=== PATIENT | female | born 1945 | race Caucasian/White ===

== ENCOUNTER → 2019-06-23 14:41 | Outpatient (BNVA) | payer MEDICARE, SELFPAY | PROVIDERS: Visit Provider Anesthesiology | DX: M51.9 Unspecified thoracic, thoracolumbar and lumbosacral intervertebral disc disorder (principal); M25.562 Pain in left knee; Z79.891 Long term (current) use of opiate analgesic | CPT/HCPCS: 99214 ==

== ENCOUNTER 2019-06-30 12:36 | Emergency (ER) | payer MEDICARE, SELFPAY ==
[2019-06-30 12:40] VITALS: BP 177/87; PULSE 54; RESP 16; TEMP 36.3; O2SAT 98; BMI 29.2
--- NOTE | 2019-06-30 12:50 | ED_ITS ---
Entered by Cleopatra Cabrales, acting as scribe for Carmina Diego HPI - SOB/Dyspnea General: Chief Complaint: Shortness of Breath/Dyspnea Stated Complaint: difficulty breathing Time Seen by Provider: 06/30/19 12:41 Source: patient and EMS Mode of arrival: EMS Limitations: no limitations History of Present Illness: HPI Narrative: Belia is a 74-year-old female comes in complaining of cough and shortness of breath. She denies any chest pain. She denies any fever but she has been chilled. She denies any shortness of breath with exertion only a cough and occasional wheezing. He states he has had similar symptoms in the past and had to be given antibiotics. She denies any other complaints or concerns. MD elicited complaint: shortness of breath and cough Pertinent past history: COPD Onset (ago): day(s) (yesterday) Context: recent illness (just finished antibotics for sinus infection) Timing: constant and progressively worsening Severity: moderate Exacerbating factors: exertion, coughing and deep breaths Relieving factors: nothing Known history of: COPD Associated symptoms: Reports cough; Deny abdominal pain, chest pain, diaphoresis, dizziness, extremity pain, fever(s), nausea, orthopnea, palpitations, polydipsia, syncope or vomiting Treatment prior to arrival: oxygen Related Data: Home oxygen amount: none Review of Systems General: Reports: other (negative unless marked) Const: Denies: fever, chills, body aches, fatigue, malaise or diaphoresis Eyes: Denies: change in vision or blurry vision ENMT: Denies: throat pain, painful swallowing, hoarseness, ear pain, ear discharge, Change in hearing or nasal discharge Card: Denies: chest pain, palpitations, irregular heart rhythm, syncope, pre- syncope, shortness of breath on exertion or shortness of breath when lying down GI: Denies: abdominal pain, nausea, vomiting, vomiting blood, coffee grounds in vomit, diarrhea, constipation, cramping, blood in stool or black tarry stool : Denies: flank pain, painful urination, urinary frequency, urinary urgency, decreased urine ouput, urinary incontinence or blood in urine Musc: Denies: neck pain, back pain, extremity pain, extremity swelling, joint pain, joint swelling, joint warmth or joint stiffness Skin/Breast: Denies: rash, skin tenderness or yellow skin Neuro: Denies: headache, numbness in extremities, weakness in extremities, changes in sensation, lack of coordination, difficulty walking, dizziness, vertigo or confusion Endo: Denies: excessive thirst, tired all the time, cold intolerance, excessive sweating, flushing or hot flashes Charlie/Lymph: Denies: easy bruising, easy bleeding, petechiae or enlarged lymph nodes All/Imm: Denies: hives, throat swelling, tongue swelling, facial swelling or acute wheezing PFSH ED PFSH: Statuses (acute, chronic, etc) shown below reflect problem list status as previously entered and may not be historically accurate Medical History Acute pain of left knee (Chronic) Back pain with history of spinal surgery (Chronic) Chronic pulmonary edema (Chronic) 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) History of COPD (Chronic) History of gallbladder disease (Chronic) Osteopenia (Chronic) Surgical History Hx of excision of lamina of cervical vertebra for decompression of spinal cord (Acute) Hx of neck surgery (Acute) Hx of thyroidectomy (Acute) Family History Father Throat cancer Mother , At age 80 Heart disease Other Diabetes Hypertension Thyroid disorder Denies family history of Anesthesia complication Bleeding disorder Social History Smoking and tobacco status: never smoked Second hand smoke exposure: No Alcohol intake: never Lives independently: Yes Household members: spouse Marital status: Current occupational status: retired History of recent travel: No Physical Exam Const: COMMON NORMALS: no apparent distress, oriented x3, no limitations, healthy appearing and well nourished EXAM LIMITATIONS: no altered mental status GENERAL APPEARANCE: cooperative, well kempt and well developed ORIENTATION/CONSCIOUSNESS: Yes awake HENMT: COMMON NORMALS: normocephalic, head/scalp atraumatic, hearing grossly normal bilaterally, external ears normal, EAC's normal, external nose normal and moist oral mucous membranes HEAD & SCALP: normal to inspection, normocephalic and atraumatic FACE & SINUS: normal facial exam and face symmetric NOSE: external nose normal and nares normal EXTERNAL EAR: Yes external ears normal EXTERNAL AUDITORY CANAL: EAC's normal MOUTH: oral and palatal mucosa normal and tongue normal Eye: COMMON NORMALS: PERRL, EOMs intact bilaterally, conjunctivae normal and no scleral icterus GENERAL EYE: normal appearance of both eyes and normal light reflex CONJUNCTIVA: Yes conjunctivae normal SCLERA: sclerae normal CORNEA: Yes corneas normal PUPIL: Yes PERRL DIRECT OPHTHALMOSCOPY: Yes normal light reflex Neck/C-Spine: COMMON NORMALS: full ROM, no lymphadenopathy, supple, no meningeal signs and no JVD GENERAL: Yes normal visual inspection and Yes trachea midline CERVICAL SPINE: Yes cervical ROM normal Chest: COMMONS NORMALS: inspection of chest normal and palpation of chest normal Cardio: COMMON NORMALS: no JVD, regular rate, regular rhythm, S1 normal heart sound, S2 normal heart sound, no gallops, no clicks, no murmurs and no rub JUGULAR VENOUS DISTENTION: no JVD RATE: regular rate RHYTHM: regular rhythm HEART SOUNDS: S1 normal and S2 normal GI: COMMON NORMALS: soft to palpation, non-tender, no hepatosplenomegaly and no masses INSPECTION: Yes normal to inspection PALPATION: Yes soft and Yes no hepatosplenomegaly : COMMON NORMALS: Yes no CVA tenderness BLADDER/KIDNEY EXAM: Yes no CVA tenderness Back/Pelvis: COMMON NORMALS: no CVA tenderness, thoracic and lumbar spine normal to inspection, no thoracic nor lumbar tenderness and thoraco-lumbar ROM normal Extremity: COMMON NORMALS: normal to inspection, full ROM, normal capillary refill, no joint enlargement, no clubbing, cyanosis or edema and no calf tenderness Neuro: COMMON NORMALS: oriented x3, CN's II-XII intact bilaterally, moves all extremities, no focal motor deficits and no sensory deficits noted MENINGEAL SIGNS: Yes no meningeal signs Psych: COMMON NORMALS: mental status grossly normal, thought process normal, cooperative, affect normal, speech normal and activity/motor behavior normal APPEARANCE: Yes well kempt SPEECH: Yes normal speech THOUGHT PROCESS: normal thought process Skin: COMMON NORMALS: no rashes or lesions noted, skin turgor normal, no jaundice, no petechiae and no mottling GENERAL SKIN EXAM: no rashes or lesions noted and turgor normal Course Vital Signs: Vital signs: Vital Signs Temperature 97.4 F L 06/30/19 12:40 Pulse Rate 66 06/30/19 13:30 Respiratory Rate 16 02/04/20 13:10 Blood Pressure 177/87 06/30/19 12:40 Pulse Oximetry 92 06/30/19 13:10 MDM - SOB/Dyspnea MDM Narrative: Medical decision making narrative: Ms. Machado is a 74-year-old female who comes in complaining of dyspnea with productive cough for the past 1 to 2 days. She uses oxygen as needed at home. She is had some sharp pleuritic left-sided chest pain. Her cardiac enzymes do not rule her and her EKGs are unremarkable. Her chest pain sounds pleuritic in nature. The patient's CT shows no sign of pneumonia and no pulmonary embolism. The patient is refusing to stay for any further evaluation and care and is adamant/demanding to be di scharged. I will place her on steroids, albuterol at home as she has a nebulizer and antibiotics. This is the course of care she wants to proceed with. Further care will be dictated by her doctor as I have instructed her to follow-up as soon as possible she agrees to return should her symptoms change or worsen. Lab Data: Attestation: I reviewed the patient's lab results. Labs: Lab Results 06/30/19 06/30/19 06/30/19 Range/Units 13:17 13:20 13:45 WBC 7.7 (4.0-10.0) 10^3/ uL RBC 4.40 (4.1-5.3) 10^6/u L Hgb 12.2 (11.5-15.3) g/dL Hct 37.2 (37.0-47.0) % MCV 84.5 (81-99) fL MCH 27.7 L (28.0-34.0) pg MCHC 32.8 (30.0-36.0) g/dL RDW 12.7 (12.1-15.1) % Plt Count 246 (130-400) 10^3/c mm MPV 11.4 H (7.4-10.4) fL Neut % (Auto) 57.2 % Lymph % (Auto) 32.9 % [place] % (Auto) 8.0 % Eos % (Auto) 1.2 % Baso % (Auto) 0.4 % Neut # (Auto) 4.4 (1.8-7.7) 10^3/u L Lymph # (Auto) 2.5 (0.8-4.8) 10^3/u L [place] # (Auto) 0.6 (0.2-0.9) 10^3/u L Eos # (Auto) 0.1 (0.0-0.8) 10^3/u L Baso # (Auto) 0.0 (0.0-0.1) 10^3/u L Nucleated RBC % (a uto) 0 % Nucleated RBCs # 0.0 /100WBC PT (10.5-13.3) SECO NDS INR (0.8-1.2) D-Dimer (0-0.59) ug/mIFE U Specimen Type Arterial Sample Site Radial, left ABG pH 7.51 H (7.35-7.45) ABG pCO2 36.0 (35-45) mmHg ABG pO2 92.0 (80.0-100.0) mmH g ABG HCO3 28.7 H (22-26) mmol/L ABG Base Excess 5.6 H (-2.0-2.0) mmol/ L Parag Test Pos Hematocrit 40.4 (37-47) % O2 Delivery Device Nc FiO2 28.0 % Mirror Inspector ID cak Sodium (136-145) mmol/L Potassium (3.5-5.1) mmol/L Chloride (98-107) mmol/L Carbon Dioxide (22-29) mmol/L Anion Gap (5-19) BUN (8-23) mg/dL Creatinine (0.5-0.9) mg/dL Glucose (74-106) mg/dL Lactic Acid (0.5-2.2) mmol/L Calcium (8.5-10.5) mg/dL Total Bilirubin (0.15-1.2) mg/dL AST (0-32) U/L ALT (0-33) U/L Alkaline Phosphata se (35-105) IU/L Troponin T Baselin e (0-10) ng/mL Troponin T 120 Min [place] (0-10) ng/mL Delta Troponin T (0-10) ABS# NT-Pro-B Natriuret Pep (0-450) pg/mL Total Protein (6.6-8.7) g/dL Albumin (3.5-5.2) g/dL Globulin (1.3-4.6) g/dL Urine Color Yellow (Yellow) Urine Appearance Clear (CLEAR) Urine pH 8 H (5-7) Ur Specific Gravit y 1.005 (1.005-1.030) Urine Protein Neg (Negative) Urine Glucose (UA) Norm (Normal) Urine Ketones Negative (Negative) Urine Occult Blood Neg (Negative) Urine Nitrate Negative (Negative) Urine Bilirubin Neg (NEGATIVE) Prot Sulfosalicyli c Acd Negative Urine Urobilinogen Norm (Negative) mg/dL Ur Leukocyte Keely ase Negative (Negative) Urine RBC None (0-2) /hpf Urine WBC None (0-5) /hpf Ur Squamous Epith Cells None (0-5) Urine Bacteria None (NONE) Influenza Type A A g (Negative) POC Influenza B Ag (Negative) 06/30/19 06/30/19 06/30/19 Range/Units 13:45 13:45 13:45 WBC (4.0-10.0) 10^3/ uL RBC (4.1-5.3) 10^6/u L Hgb (11.5-15.3) g/dL Hct (37.0-47.0) % MCV (81-99) fL MCH (28.0-34.0) pg MCHC (30.0-36.0) g/dL RDW (12.1-15.1) % Plt Count (130-400) 10^3/c mm MPV (7.4-10.4) fL Neut % (Auto) % Lymph % (Auto) % [place] % (Auto) % Eos % (Auto) % Baso % (Auto) % Neut # (Auto) (1.8-7.7) 10^3/u L Lymph # (Auto) (0.8-4.8) 10^3/u L [place] # (Auto) (0.2-0.9) 10^3/u L Eos # (Auto) (0.0-0.8) 10^3/u L Baso # (Auto) (0.0-0.1) 10^3/u L Nucleated RBC % (a uto) % Nucleated RBCs # /100WBC PT 12.70 (10.5-13.3) SECO NDS INR 0.95 (0.8-1.2) D-Dimer (0-0.59) ug/mIFE U Specimen Type Sample Site ABG pH (7.35-7.45) ABG pCO2 (35-45) mmHg ABG pO2 (80.0-100.0) mmH g ABG HCO3 (22-26) mmol/L ABG Base Excess (-2.0-2.0) mmol/ L Parag Test Hematocrit (37-47) % O2 Delivery Device FiO2 % Mirror Inspector ID Sodium 134 L (136-145) mmol/L Potassium 3.4 L (3.5-5.1) mmol/L Chloride 94 L (98-107) mmol/L Carbon Dioxide 29 (22-29) mmol/L Anion Gap 14.4 (5-19) BUN 13 (8-23) mg/dL Creatinine 0.6 (0.5-0.9) mg/dL Glucose 106 (74-106) mg/dL Lactic Acid 1.9 (0.5-2.2) mmol/L Calcium 9.6 (8.5-10.5) mg/dL Total Bilirubin 0.2 (0.15-1.2) mg/dL AST 16 (0-32) U/L ALT 8 (0-33) U/L Alkaline Phosphata se 103 (35-105) IU/L Troponin T Baselin e (0-10) ng/mL Troponin T 120 Min [place] (0-10) ng/mL Delta Troponin T (0-10) ABS# NT-Pro-B Natriuret Pep 298 (0-450) pg/mL Total Protein 6.8 (6.6-8.7) g/dL Albumin 4.3 (3.5-5.2) g/dL Globulin 2.5 (1.3-4.6) g/dL Urine Color (Yellow) Urine Appearance (CLEAR) Urine pH (5-7) Ur Specific Gravit y (1.005-1.030) Urine Protein (Negative) Urine Glucose (UA) (Normal) Urine Ketones (Negative) Urine Occult Blood (Negative) Urine Nitrate (Negative) Urine Bilirubin (NEGATIVE) Prot Sulfosalicyli c Acd Urine Urobilinogen (Negative) mg/dL Ur Leukocyte Keely ase (Negative) Urine RBC (0-2) /hpf Urine WBC (0-5) /hpf Ur Squamous Epith Cells (0-5) Urine Bacteria (NONE) Influenza Type A A g (Negative) POC Influenza B Ag (Negative) 06/30/19 06/30/19 06/30/19 Range/Units 13:45 13:45 15:59 WBC (4.0-10.0) 10^3/ uL RBC (4.1-5.3) 10^6/u L Hgb (11.5-15.3) g/dL Hct (37.0-47.0) % MCV (81-99) fL MCH (28.0-34.0) pg MCHC (30.0-36.0) g/dL RDW (12.1-15.1) % Plt Count (130-400) 10^3/c mm MPV (7.4-10.4) fL Neut % (Auto) % Lymph % (Auto) % [place] % (Auto) % Eos % (Auto) % Baso % (Auto) % Neut # (Auto) (1.8-7.7) 10^3/u L Lymph # (Auto) (0.8-4.8) 10^3/u L [place] # (Auto) (0.2-0.9) 10^3/u L Eos # (Auto) (0.0-0.8) 10^3/u L Baso # (Auto) (0.0-0.1) 10^3/u L Nucleated RBC % (a uto) % Nucleated RBCs # /100WBC PT (10.5-13.3) SECO NDS INR (0.8-1.2) D-Dimer 0.84 H (0-0.59) ug/mIFE U Specimen Type Sample Site ABG pH (7.35-7.45) ABG pCO2 (35-45) mmHg ABG pO2 (80.0-100.0) mmH g ABG HCO3 (22-26) mmol/L ABG Base Excess (-2.0-2.0) mmol/ L Parag Test Hematocrit (37-47) % O2 Delivery Device FiO2 % Mirror Inspector ID Sodium (136-145) mmol/L Potassium (3.5-5.1) mmol/L Chloride (98-107) mmol/L Carbon Dioxide (22-29) mmol/L Anion Gap (5-19) BUN (8-23) mg/dL Creatinine (0.5-0.9) mg/dL Glucose (74-106) mg/dL Lactic Acid (0.5-2.2) mmol/L Calcium (8.5-10.5) mg/dL Total Bilirubin (0.15-1.2) mg/dL AST (0-32) U/L ALT (0-33) U/L Alkaline Phosphata se (35-105) IU/L Troponin T Baselin e 15 H (0-10) ng/mL Troponin T 120 Min [place] (0-10) ng/mL Delta Troponin T (0-10) ABS# NT-Pro-B Natriuret Pep (0-450) pg/mL Total Protein (6.6-8.7) g/dL Albumin (3.5-5.2) g/dL Globulin (1.3-4.6) g/dL Urine Color (Yellow) Urine Appearance (CLEAR) Urine pH (5-7) Ur Specific Gravit y (1.005-1.030) Urine Protein (Negative) Urine Glucose (UA) (Normal) Urine Ketones (Negative) Urine Occult Blood (Negative) Urine Nitrate (Negative) Urine Bilirubin (NEGATIVE) Prot Sulfosalicyli c Acd Urine Urobilinogen (Negative) mg/dL Ur Leukocyte Keely ase (Negative) Urine RBC (0-2) /hpf Urine WBC (0-5) /hpf Ur Squamous Epith Cells (0-5) Urine Bacteria (NONE) Influenza Type A A g Negative (Negative) POC Influenza B Ag Negative (Negative) 06/30/19 Range/Units 16:08 WBC (4.0-10.0) 10^3/ uL RBC (4.1-5.3) 10^6/u L Hgb (11.5-15.3) g/dL Hct (37.0-47.0) % MCV (81-99) fL MCH (28.0-34.0) pg MCHC (30.0-36.0) g/dL RDW (12.1-15.1) % Plt Count (130-400) 10^3/c mm MPV (7.4-10.4) fL Neut % (Auto) % Lymph % (Auto) % [place] % (Auto) % Eos % (Auto) % Baso % (Auto) % Neut # (Auto) (1.8-7.7) 10^3/u L Lymph # (Auto) (0.8-4.8) 10^3/u L [place] # (Auto) (0.2-0.9) 10^3/u L Eos # (Auto) (0.0-0.8) 10^3/u L Baso # (Auto) (0.0-0.1) 10^3/u L Nucleated RBC % (a uto) % Nucleated RBCs # /100WBC PT (10.5-13.3) SECO NDS INR (0.8-1.2) D-Dimer (0-0.59) ug/mIFE U Specimen Type Sample Site ABG pH (7.35-7.45) ABG pCO2 (35-45) mmHg ABG pO2 (80.0-100.0) mmH g ABG HCO3 (22-26) mmol/L ABG Base Excess (-2.0-2.0) mmol/ L Parag Test Hematocrit (37-47) % O2 Delivery Device FiO2 % Mirror Inspector ID Sodium (136-145) mmol/L Potassium (3.5-5.1) mmol/L Chloride (98-107) mmol/L Carbon Dioxide (22-29) mmol/L Anion Gap (5-19) BUN (8-23) mg/dL Creatinine (0.5-0.9) mg/dL Glucose (74-106) mg/dL Lactic Acid (0.5-2.2) mmol/L Calcium (8.5-10.5) mg/dL Total Bilirubin (0.15-1.2) mg/dL AST (0-32) U/L ALT (0-33) U/L Alkaline Phosphata se (35-105) IU/L Troponin T Baselin e (0-10) ng/mL Troponin T 120 Min [place] 13.11 H (0-10) ng/mL Delta Troponin T -1.89 L (0-10) ABS# NT-Pro-B Natriuret Pep (0-450) pg/mL Total Protein (6.6-8.7) g/dL Albumin (3.5-5.2) g/dL Globulin (1.3-4.6) g/dL Urine Color (Yellow) Urine Appearance (CLEAR) Urine pH (5-7) Ur Specific Gravit y (1.005-1.030) Urine Protein (Negative) Urine Glucose (UA) (Normal) Urine Ketones (Negative) Urine Occult Blood (Negative) Urine Nitrate (Negative) Urine Bilirubin (NEGATIVE) Prot Sulfosalicyli c Acd Urine Urobilinogen (Negative) mg/dL Ur Leukocyte Keely ase (Negative) Urine RBC (0-2) /hpf Urine WBC (0-5) /hpf Ur Squamous Epith Cells (0-5) Urine Bacteria (NONE) Influenza Type A A g (Negative) POC Influenza B Ag (Negative) Imaging Data^: CT Chest: Radiologist's impression: [place] [address] CT Scan Report Signed Patient: Belia Machado Unit #: [id number] : 1945 Age/Sex: 74 / F ADM Date: 06/30 Loc: ER Room/Bed: Attending Dr: Ordering Provider/Ordering MD: Carmina Dieog DO Date of Service: 06/30/19 Procedure(s): CT angio chest PE protcl [id number] Accession Number(s): [id number] Report Number: [id number] WS: [id number] CTA OF THE CHEST WITH PULMONARY EMBOLISM PROTOCOL TECHNIQUE: High-resolution contrast enhanced CTA of the chest with coronal and sagittal reformatted images with pulmonary embolism protocol. MIP images are also reviewed. CLINICAL INFORMATION: CP/SOB/POSITIVE D-DIMER COMPARISON: None. DLP: 520.[address] scans at [facility] use at least one of these dose optimization techniques: automated exposure control; mA and/or kV adjustment per patient size (includes targeted exams where dose is matched to clinical indication); or iterative reconstruction. FINDINGS: Proximal main pulmonary arteries are normal. Segmental and subsegmental pulmonary arteries are normal. No evidence for pulmonary embolus. Normal caliber thoracic aorta. Mild chronic emphysematous changes. No acute pulmonary infiltrates. No consolidation or pleural fluid. Slight atelectasis right lung base. Adrenal glands are normal. Fatty atrophy of the pancreas.Esophageal hiatal hernia with omental herniation of fat in a retrocardiac position. Message left for Carmina Diego at 06/30/2019 4:[address]/CT angio chest PE protcl [id number] IMPRESSION: 1. No evidence for pulmonary embolism. 2. Mild chronic emphysematous changes. No acute pulmonary infiltrates. Slight atelectasis right lung base. 3. No pleural fluid. 4. Esophageal hiatal hernia with herniated omental fat in retrocardiac position. Dictated By: Caesar Burns MD Signed By: Caesar Burns MD Signed Date/Time: 06/30/191625 DD/ 08 EKG Data^: EKG 1: Attestation: I personally reviewed and interpreted this EKG as follows: EKG Interpretation Date: 06/30/19 EKG interpretation time: 13:05 Interpretation: Normal sinus rhythm at 53 beats a minute, no acute ST-T wave changes. Discharge Plan Discharge Patient Disposition: Home, Self-Care Clinical Impression: Acute bronchitis with bronchospasm Condition: Stable Prescriptions: New prednisone 10 mg tablets,dose pack See Rx Instructions .ROUTE .COMPLEX Qty: 21 RF: 0 doxycycline hyclate 100 mg tablet 100 mg PO BID 10 Days Qty: 20 RF: 0 albuterol sulfate 2.5 mg /3 mL (0.083 %) solution for nebulization 2.5 mg INHALATION Q6H PRN (Reason: shortness of breath or wheezing) Qty: 180 RF: 0 No Action Myrbetriq 50 mg tablet extended release 24 hr 50 mg PO DAILY RF: 0 albuterol sulfate [ProAir HFA] 90 mcg/actuation HFA aerosol inhaler 2 puff INHALATION Q6H PRN (Reason: Shortness Of Breath) RF: 0 esomeprazole magnesium [Nexium] 40 mg capsule,delayed release(DR/EC) 40 mg PO DAILY PRN (Reason: Indigestion) RF: 0 atenolol 50 mg tablet 50 mg PO DAILY RF: 0 modafinil 200 mg tablet 200 mg PO QDAY RF: 0 fluticasone propionate 50 mcg/actuation spray,suspension 2 spray INTRANASAL DAILY PRN (Reason: unknown) RF: 0 (DME) oxygen-air delivery systems Device See Rx Instructions .ROUTE .MEDSUPPLY Qty: 1 RF: 0 oxycodone [OxyContin] 80 mg tablet,oral only,ext.rel.12 hr 80 mg PO TID 30 Days Qty: 90 RF: 0 oxycodone 80 mg tablet,oral only,ext.rel.12 hr 80 mg PO TID 30 Days Qty: 90 RF: 0 oxycodone-acetaminophen 10-325 mg tablet 1 tab PO .5 times a day PRN (Reason: pain) 30 Days Qty: 90 RF: 0 oxycodone-acetaminophen [Percocet] 10-325 mg tablet 1 tab PO .5 times a day PRN (Reason: pain) 30 Days Qty: 90 RF: 0 oxycodone-acetaminophen [Percocet] 10-325 mg tablet 1 tab PO .5 times a day PRN (Reason: pain) 30 Days Qty: 60 RF: 0 oxycodone-acetaminophen [Percocet] 10-325 mg tablet 1 tab PO .5 times a day PRN (Reason: pain) 30 Days Qty: 60 RF: 0 pregabalin [Lyrica] 100 mg capsule 200 mg PO TID 30 Days Qty: 180 RF: 0 tizanidine 4 mg capsule 4 mg PO TID PRN (Reason: muscle spasticity) 30 Days Qty: 90 RF: 1 Multiple Vitamins Tablet 1 tab PO DAILY RF: 0 Lasix 40 mg Tablet 40 mg PO DAILY RF: 0 vitamin E 1,000 unit Capsule See Rx Instructions .ROUTE .COMPLEX RF: 0 albuterol sulfate 2.5 mg /3 mL (0.083 %) Solution For Nebulization 2.5 mg inhalation BID PRN (Reason: Shortness Of Breath) RF: 0 Mobic 15 mg Tablet 15 mg PO DAILY RF: 0 Tessalon Perles 100 mg Capsule 200 mg PO PRN RF: 0 Colace 100 mg Capsule 100 mg PO DAILY RF: 0 dicyclomine 10 mg Capsule 10 mg PO PRN RF: 0 levothyroxine 112 mcg Tablet See Rx Instructions .ROUTE .COMPLEX RF: 0 Augmentin 875-125 mg Tablet 1 tab PO BID RF: 0 Vitamin D3 2,000 unit Tablet 2,000 unit PO DAILY RF: 0 potassium chloride 20 mEq Tablet Extended Release See Rx Instructions .ROUTE .COMPLEX RF: 0 Discharge Orders: Discharge Order (Routine); Ordered 06/30/19 Ordered By: Carmina Diego Referrals: Roston,Parveen N, DO [Primary Care Provider] - 1-3 days Discharge Diet: Advance as tolerated Discharge Activity: Increase activity as tolerated Patient Instructions: Acute Bronchitis (ED) Activity Restrictions/Additional Instructions: Please return to the ER immediately for any of the signs or symptoms listed on your discharge instruction sheets, worsening/changing of your symptoms, you are not getting better as quickly as expected, or for ANY other cause or concerns. Discharge Date/Time: 06/30/19 17:05 Coding Level of Care Code ED Content Management Consultant for Chg Fwd Exam Problem Focused The documentation recorded by the Keron girard Bridget Annette, accurately reflects the service I personally performed and the decisions made by Branide mckeon Eli N Jun 30, 2019 12:36
[2019-06-30 12:53] VITALS: O2SAT 99
--- NOTE | 2019-06-30 12:53 | XR_ITS ---
WS: [id number] Portable AP upright chest, 06/30/2019 Clinical Data: cough Comparison: PA and lateral chest, 02/27/2016. Findings: No nodules, masses or effusions are seen. The heart is normal. The pulmonary vascularity is not increased. No pneumonia or pneumothorax is seen. The aortic arch and descending aorta are tortuo us. The patient's had an anterior cervical disc fusion of C5-C7 and a posterior fusion of the upper c ervical vertebra. There is degenerative arthritic change of the right shoulder. XR/XR chest 1V portable [id number] Impression: Atherosclerosis.
--- NOTE | 2019-06-30 12:54 | ECG_ITS ---
Measurements Intervals [place] Rate: 53 P: 12 ID: [id number] QRS: -7 QRSD: 85 T: 50 QT: 417 QTc: 394 SINUS BRADYCARDIA Compared to ECG 02/25/2016 22:50:34 Sinus rhythm no longer present Electronically Signed On 06-30-2019 20:14:34 ENVIRONMENTAL ENGINEER SCIENTIST by Lino Torrez M.D. [email or web address]
[2019-06-30 13:10] VITALS: PULSE 53; RESP 16; O2SAT 92
[2019-06-30] MEDS: ipratropium-albuterol 3 mL Neb 9 ML INHALATION (13:15)
[2019-06-30 13:29] LABS: ABG PH Result 7.51 (7.35-7.45); Arterial Blood Gas Hematocrit 40.4 % (37-47); Base Excess ABG 5.6 mmol/L (-2.0-2.0); Blood Gas Allen Test Pos; Blood Gas Sample Site Radial, left; Blood Gas Sample Type Arterial; HCO3 ABG 28.7 mmol/L (22-26); Oxygen Device NC
[2019-06-30 13:30] VITALS: PULSE 66
[2019-06-30 13:40] LABS: Urine Appearance Clear (CLEAR); Urine Color Yellow (Yellow); pH Urine 8 (5-7)
[2019-06-30 13:41] LABS: Bilirubin Urine Neg (NEGATIVE); Blood Urine Neg (Negative); Glucose Urine UA Norm (Normal); Ketones Urine Negative (Negative); Leukocyte Esterase Urine Negative (Negative); Nitrate Urine Negative (Negative); Protein Urine Neg (Negative); Specific Gravity, Urine 1.005 (1.005-1.030); Sulfosalicylic Acid Urine Negative; Urobilinogen Urine Norm (Negative)
[2019-06-30 13:56] LABS: Basophils % 0.4 %; Eosinophils # 0.1 10^3/uL (0.0-0.8); Eosinophils % 1.2 %; Hematocrit 37.2 % (37.0-47.0); Hemoglobin 12.2 g/dL (11.5-15.3); Lymphocytes # 2.5 10^3/uL (0.8-4.8); Lymphocytes % 32.9 %; Mean Corpuscular HGB Conc 32.8 g/dL (30.0-36.0); Mean Corpuscular Hemoglobin 27.7 pg (28.0-34.0); Mean Corpuscular Volume 84.5 fL (81-99); Mean Platelet Volume 11.4 fL (7.4-10.4); Monocytes # 0.6 10^3/uL (0.2-0.9); Neutrophils # 4.4 10^3/uL (1.8-7.7); Neutrophils % 57.2 %; Nucleated Red Blood Cells % 0 %; Platelet Count 246 10^3/cmm (130-400); Red Cell Distribution Width 12.7 % (12.1-15.1); White Blood Count 7.7 10^3/uL (4.0-10.0)
[2019-06-30 14:16] LABS: Lactic Sepsis W/Reflex 1.9 mmol/L (0.5-2.2); Troponin(5th) Baseline 15 ng/mL (0-10)
[2019-06-30 14:25] LABS: Alanine Aminotransferase 8 U/L (0-33); Albumin Level 4.3 g/dL (3.5-5.2); Alkaline Phosphatase 103 IU/L (35-105); Anion Gap 14.4 (5-19); Aspartate Amino Transferase 16 U/L (0-32); Blood Urea Nitrogen 13 mg/dL (8-23); Calcium 9.6 mg/dL (8.5-10.5); Carbon Dioxide 29 mmol/L (22-29); Chloride 94 mmol/L (98-107); Globulin 2.5 g/dL (1.3-4.6); Glucose 106 mg/dL (74-106); NT Pro B Type Natriuretic Pept 298 pg/mL (0-450); Potassium 3.4 mmol/L (3.5-5.1); Sodium 134 mmol/L (136-145); Total Bilirubin 0.2 mg/dL (0.15-1.2); Total Protein 6.8 g/dL (6.6-8.7)
[2019-06-30 14:34] LABS: D Dimer 0.84 ug/mIFEU (0-0.59); INR 0.95 (0.8-1.2)
--- NOTE | 2019-06-30 14:50 | CT_ITS ---
WS: [id number] CTA OF THE CHEST WITH PULMONARY EMBOLISM PROTOCOL TECHNIQUE: High-resolution contrast enhanced CTA of the chest with coronal and sagittal reformatted i mages with pulmonary embolism protocol. MIP images are also reviewed. CLINICAL INFORMATION: CP/SOB/POSITIVE D-DIMER COMPARISON: None. DLP: 520.[address] scans at [facility] use at least one of these dose optimization techniques: automat ed exposure control; mA and/or kV adjustment per patient size (includes targeted exams where dose is matched to clinical indication); or iterative reconstruction. FINDINGS: Proximal main pulmonary arteries are normal. Segmental and subsegmental pulmonary arteries are normal . No evidence for pulmonary embolus. Normal caliber thoracic aorta. Mild chronic emphysematous changes. No acute pulmonary infiltrates. No consolidation or pleural fluid . Slight atelectasis right lung base. Adrenal glands are normal. Fatty atrophy of the pancreas.Esophageal hiatal hernia with omental hernia tion of fat in a retrocardiac position. Message left for Carmina Diego at 06/30/2019 4:[address]/CT angio chest PE protcl [id number] IMPRESSION: 1. No evidence for pulmonary embolism. 2. Mild chronic emphysematous changes. No acute pulmonary infiltrates. Slight atelectasis right lung base. 3. No pleural fluid. 4. Esophageal hiatal hernia with herniated omental fat in retrocardiac positio n.
--- NOTE | 2019-06-30 14:54 | ECG_ITS ---
Measurements Intervals [place] Rate: 71 P: 26 [place]: 171 QRS: -30 QRSD: 84 T: 45 QT: 381 QTc: 416 SINUS RHYTHM BORDERLINE LEFT AXIS DEVIATION [QRS AXIS < -20] POSSIBLE RIGHT VENTRICULAR CONDUCTION DELAY [RSR (QR) IN V1/V2] Compared to ECG 02/25/2016 22:50:34 No significant changes Electronically Signed On 06-30-2019 20:17:32 TEMPER MILL OPERATOR by Lino Torrez M.D. [id number]
[2019-06-30] MEDS: sodium chloride 0.9% 1,000 ML 100 ML IV (14:56)
--- NOTE | 2019-06-30 15:56 | PC.NURSE ---
patient returned from ct
[2019-06-30] MEDS: iohexol 350 mg/mL 100 mL Btl IV (15:58)
[2019-06-30 16:28] LABS: Troponin 5 2HR 13.11 ng/mL (0-10)
[2019-06-30 16:42] LABS: Troponin 5 2HR Delta -1.89 ABS# (0-10)
[2019-06-30 16:43] LABS: Influenza A by IFA Negative (Negative); Influenza B by IFA Negative (Negative)
--- NOTE | 2019-06-30 18:54 | ECG_ITS ---
Measurements Intervals [place] Rate: 67 P: [place]: 0 QRS: -33 QRSD: 88 T: 46 QT: 370 QTc: 392 ATRIAL FIBRILLATION LEFT AXIS DEVIATION [QRS AXIS < -30] Compared to ECG 06/30/2019 13:05:40 Left-axis deviation now present Sinus bradycardia no longer present Electronically Signed On 07-03-2019 22:17:49 HOP SEPARATOR by Lino Torrez M.D. [id number]
== END 2019-06-30 17:05 | disposition home or self-care (01) ==
PROVIDERS: Emergency Provider Emergency Medicine
DX: J20.9 Acute bronchitis, unspecified (principal); J44.0 Chronic obstructive pulmonary disease with (acute) lower respiratory infection; Z79.51 Long term (current) use of inhaled steroids; Z99.81 Dependence on supplemental oxygen
CPT/HCPCS: 36415; 36600; 71045; 71275; 80053; 81001; 82803; 83605; 83880; 84484; 85025; 85378; 85610; 87804; 93005; 94640; 96360; 96361; 96374; 96375; 99283; 99284; A9270; J2930; J7030; Q9967

== ENCOUNTER 2019-07-07 07:47 | Outpatient (CLI) | payer MEDICARE, SELFPAY ==
--- NOTE | 2019-07-07 08:00 | XR_ITS ---
WS: [id number] Lumbar spine with flexion, extension, and neutral lateral, 07/07/2019 Clinical Data: low back pain Comparison: MRI lumbar spine, 01/22/2019., Lateral views of the lumbar spine, 11/13/2018. Findings: No compression fractures are seen. There is disc space narrowing at L2-L3, L3-L4, L4-L5 and L5-S1. There is limitation of motion throughout the entire lumbar spine.. There is a subluxation of 0.7 cm o f L2 on L3 which is fixed. There is no abnormal movement in the posterior fusion region. The patient has had posterior lumbar fusions of the L2-3 levels and the L5-S1 levels. There are bilat eral pedicle screws connected with rods. XR/XR lumbar spine f/e only [id number] Impression: 1. Stable posterior fusions at L2-L3 and L5-S1. 2. Negative for change in subluxation at L2-L3. 3. Limitation of motion throughout the lumbar spine.
== END 2019-07-07 07:48 | disposition home or self-care (01) ==
LOC: RAD 07:54
PROVIDERS: Visit Provider Specialist
DX: M54.5 Low back pain (principal); Z98.1 Arthrodesis status
CPT/HCPCS: 72120

== ENCOUNTER 2019-07-24 08:28 | Outpatient (CLI) | payer MEDICARE, SELFPAY ==
--- NOTE | 2019-07-24 09:00 | IR_ITS ---
WS: [id number] Lumbar myelogram, cervical myelogram and thoracic myelogram, 07/24/2019 Clinical Data: Back pain, multiple surgical procedures. Comparison: Lateral lumbar spine, 07/07/2019. Findings: The usual technique approximately 3 mL of 1% lidocaine were injected via 30-gauge needle into the cut aneous tissue of the back at the L2-L3 level. Then a 22-gauge spinal needle was inserted into the spi nal canal at the L2-3 level. 15 mL of Omnipaque 300 were hand injected to fill the lumbar subarachnoi d space. Lumbar myelogram: The subarachnoid space was filled. There was extradural narrowing at the L2-L3 level. No intramedulla ry or intradural defects could be seen. The contrast material did fill the entire lumbar subarachnoid space. The patient had posterior fusion at L2-L3 with bilateral pedicle screws and also at L5-S1 wit h bilateral pedicle screws. There is a laminectomy at L5-S1 and at L2-3. Additional imaging with oblique films and flexion, extension and neutral lateral views of the lumbar spine were obtained. The L2-L3 posterior fusion remains intact. There is a subluxation at L2-L3 with obliteration of the L2-L3 disc space. There is disc space narrowing at L3-L4 and obliteration of the disc space at L4-L5. The L5-S1 fusion is intact with narrowing of the L5-S1 disc level. There is no m otion noted on flexion or extension. There is no change in the L2-L3 subluxation on flexion or extens ion. Diffuse osteoporosis of the lumbar vertebral bodies is noted. There is a large amount of fecal m aterial throughout the colon.. Cervical myelogram: The patient was placed into the head down position and the contrast material flowed into the cervical subarachnoid space. The patient is had an anterior cervical disc fusion of C4-C6 with disc spacers. The patient has had a posterior cervical fusion with bilateral pedicle screws at C2 and C5. There is a unilateral pedicle screw at C4. No intramedullary, intradural or extradural defects could be seen. Additional imaging with oblique films and flexion, extension and neutral lateral views were obtained. The left pedicle screw at the C6 vertebral level has broken. There is limitation of motion of the ce rvical spine at the level of the fusion. The odontoid is normal. The anterior and posterior fusions a re intact except for the small pedicle screw fracture. The patient is also had surgery of the left ne ck with multiple small surgical clips. Thoracic myelogram: Anterior and posterior imaging of the thoracic spine revealed that the contrast material remained in the subarachnoid space. No intramedullary, intradural or extradural defects could be seen. The thorac ic spine showed moderate anterior osteoarthritic change T7-T12. IR/IR myelogram spine total [id number] Impression: 1. Extradural defects at L2-L3. 2. Intact posterior fusion at L2-L3 and L5-S1. 3. No change in minimal subluxation of L2 on L3 and disc space narrowing at mul tiple levels. 4. Intact anterior and posterior fusion of the cervical spine with the notation that the left C6 pedicle screw has broken. 5. No intramedullary, intradural or extradural defects of the cervical spine ar e seen. 6. Negative thoracic myelogram.
[2019-07-24] MEDS: iohexol 300 mg/mL 50 mL Btl INTRATHECA (09:45)
--- NOTE | 2019-07-24 11:00 | CT_ITS ---
WS: [id number] CT scan of the thoracic spine. Additional two-dimensional coronal and sagittal reconstruction was per formed. 07/24/2019 Clinical Data: thoracic pain Comparison: MRI of the thoracic spine, 07/17/2018. DLP: 1054.[address] scans at use at least one of these dose optimization techniques: automat ed exposure control; mA and/or kV adjustment per patient size (includes targeted exams where dose is matched to clinical indication); or iterative reconstruction. Findings: The myelographic contrast outlines the spinal canal. There is diffuse osteoporosis of all the thoraci c vertebral bodies. There is degenerative disc disease at T12-L1. The spinal cord shows a normal sign al with no cord cysts or masses. No compression fractures are seen but Schmorl's nodes are present at the superior aspects of the T5 and T6 vertebral bodies. No intramedullary or intradural defects are present. There is a right small extradural defect at the T8-T9 level. There is a broad-based disc bul ge at T12-L1 with facet joint arthritis. CT/CT thoracic spine w con [id number] Impression: 1. Small right extradural defect at T8-T9 disc level. 2. Extradural defect due to broad-based disc bulge and facet joint arthritis at T12-L1.
--- NOTE | 2019-07-24 11:00 | CT_ITS ---
WS: [id number] CT cervical spine. Additional two-dimensional coronal and sagittal reconstruction was performed. 07/24 Clinical Data: cervical pain Comparison: CT cervical spine, 12/20/2015. DLP: 1804.[address] scans at [facility] use at least one of these dose optimization techniques: automat ed exposure control; mA and/or kV adjustment per patient size (includes targeted exams where dose is matched to clinical indication); or iterative reconstruction. Findings: The patient has had an anterior cervical disc fusion at C4-C6. Disc spacers at C4-C5 and C5-C6 are se en. There is complete fusion of the C6-C7 disc. The patient's had a posterior cervical fusion from C2 to C5 with pedicle screws bilaterally at C2 and C5. There is a unilateral pedicle screw at C4. The p ost myelogram contrast material outlines the cervical spinal cord. The spinal cord shows no intramedu llary, intradural or extradural defects. No compression fractures are seen. The odontoid is intact. T here is no prevertebral soft tissue swelling. The left C6 pedicle screw is broken but displaced only minimally. Disc fusion C4-C5 and C5-C6 is seen. Laminectomies at C2-3, C3-4, and C4-5 have been perfo rmed. C2-C3: There is posterior osteoarthritic spurring at the right foraminal exit. No disc bulge is seen. C3-C4: Posterior osteophytes are minimal but do not impinge slightly on the anterior spinal canal. No canal stenosis is seen. C4-C5: No disc bulge, canal stenosis or foraminal stenosis is seen. C5-C6: No disc bulge, canal stenosis or foraminal stenosis is seen. C6-C7: No disc bulge, canal stenosis or foraminal stenosis is seen. C7-T1: There is posterior osteophyte formation and right facet joint arthritis causing mild canal and foraminal stenosis on the right. CT/CT cervical spine w con [id number] Impression: 1. Intact anterior cervical disc fusion from C4 through C6 with an incidental b roken left C6 pedicle screw.. 2. Intact posterior fusion from C3 to through C5 with laminectomies. 3. Minimal posterior osteoarthritic spurring at C3 to-C3, C3-C4 and C7-C1. 4. Disc fusions at C4-C5, C5-C6 and C6-C7. 5. Negative for intramedullary or intradural defects.
--- NOTE | 2019-07-24 11:00 | CT_ITS ---
WS: [id number] CT of the lumbar spine, additional two-dimensional coronal and sagittal imaging was obtained. 07/24/19 Clinical Data: lumbar pain Comparison: MRI lumbar spine, 04/13/2019. DLP: 1213.[address] scans at [facility] use at least one of these dose optimization techniques: automat ed exposure control; mA and/or kV adjustment per patient size (includes targeted exams where dose is matched to clinical indication); or iterative reconstruction. Findings: The post myelogram images show that the contrast material is within the lumbar subarachnoid space. The posterior lumbar fusion of L2-L3 and also at L5-S1 are stable and intact. There is loss o f normal disc height at L2-L3, L4-L5, and to a lesser extent at L3-L4 and L5-S1. There is diffuse ost eoporosis. There is a stable subluxation of L2 on L3. Degenerative disc disease at T12-L1 is noted. T12-L1: There is a broad-based disc bulge causing mild canal stenosis along with facet joint arthriti s causing mild foraminal stenosis. L1-L2: There is a broad-based disc bulge along with facet joint hypertrophy and arthritis causing mod erate canal and foraminal stenosis. L2-L3: Is a subluxation at this level causing canal stenosis but a laminectomy has been performed. L3-L4: There is facet joint hypertrophy causing foraminal stenosis. L4-L5: There is a minimal central disc bulge along with facet joint arthritis causing mild canal and foraminal stenosis. Laminectomy has been performed. L5-S1: There is a broad-based disc bulge causing mild canal stenosis but laminectomy has been perform ed. Impression: 1. Intact posterior fusions at L2-L3 and L5-S1. 2. Multilevel disc bulge and facet joint arthrosis causing canal and foraminal stenosis. 3. Negative for intramedullary or intradural defects. 4. Multilevel degenerative disc disease and diffuse osteoporosis. 5. Subluxation of L2 on L3 causes extradural narrowing of the spinal canal.
== END 2019-07-24 08:29 | disposition home or self-care (01) ==
LOC: RADWPI 08:34
PROVIDERS: Visit Provider Specialist
DX: M96.1 Postlaminectomy syndrome, not elsewhere classified (principal); M54.6 Pain in thoracic spine; M51.24 Other intervertebral disc displacement, thoracic region; M51.26 Other intervertebral disc displacement, lumbar region; M47.896 Other spondylosis, lumbar region; M81.0 Age-related osteoporosis without current pathological fracture; Z98.1 Arthrodesis status
CPT/HCPCS: 62305; 72040; 72120; 72126; 72129; 72132

== ENCOUNTER → 2019-08-06 14:07 | Outpatient (BNVA) | payer MEDICARE, SELFPAY | PROVIDERS: Visit Provider Anesthesiology | DX: M51.9 Unspecified thoracic, thoracolumbar and lumbosacral intervertebral disc disorder (principal); M43.14 Spondylolisthesis, thoracic region; M96.1 Postlaminectomy syndrome, not elsewhere classified; M25.562 Pain in left knee; Z98.1 Arthrodesis status; Z79.891 Long term (current) use of opiate analgesic | CPT/HCPCS: 99214 ==

== ENCOUNTER → 2019-08-12 09:13 | Outpatient (BNVA) | payer MEDICARE, SELFPAY | PROVIDERS: Visit Provider Specialist | DX: R53.1 Weakness (principal); G30.9 Alzheimer's disease, unspecified; F02.80 Dementia in other diseases classified elsewhere, unspecified severity, without behavioral disturbance, psychotic disturbance, mood disturbance, and anxiety; G62.9 Polyneuropathy, unspecified; M47.16 Other spondylosis with myelopathy, lumbar region; M47.12 Other spondylosis with myelopathy, cervical region | CPT/HCPCS: 95909; 96116; 99205 ==

== ENCOUNTER 2019-08-12 12:55 | Outpatient (CLI) | payer MEDICARE, SELFPAY ==
[2019-08-12 14:07] LABS: Thyroid Stimulating Hormone 0.14 uIU/mL (0.27-4.20); Vitamin B12 668 pg/mL (232-1245)
[2019-08-12 14:09] LABS: Estmated Average Glucose 123; Hemoglobin A1C 5.9 % (4.0-6.0)
[2019-08-12 14:17] LABS: Folate Level 17.1 ng/mL (4.8-37.3)
[2019-08-12 15:03] LABS: Erythrocyte Sedimentation Rate 9 mm/hr (0-15)
[2019-08-16 00:46] LABS: Methylmalonic Acid 157 nmol/L (87-318)
== END 2019-08-12 12:56 | disposition home or self-care (01) ==
LOC: LAB 13:00
PROVIDERS: Visit Provider Specialist
DX: R53.1 Weakness (principal); R20.0 Anesthesia of skin; Z79.899 Other long term (current) drug therapy
CPT/HCPCS: 36415; 82607; 82746; 83036; 83921; 84260; 84443; 85651

== ENCOUNTER → 2020-04-13 13:29 | Outpatient (BNVA) | payer MEDICARE, SELFPAY | PROVIDERS: PCP Family Medicine; Visit Provider Anesthesiology | DX: M48.061 Spinal stenosis, lumbar region without neurogenic claudication (principal); M47.16 Other spondylosis with myelopathy, lumbar region; M43.16 Spondylolisthesis, lumbar region; M51.9 Unspecified thoracic, thoracolumbar and lumbosacral intervertebral disc disorder; M43.14 Spondylolisthesis, thoracic region; M47.12 Other spondylosis with myelopathy, cervical region; M54.9 Dorsalgia, unspecified; M96.1 Postlaminectomy syndrome, not elsewhere classified; Z98.890 Other specified postprocedural states; Z98.1 Arthrodesis status; Z79.891 Long term (current) use of opiate analgesic | CPT/HCPCS: 99214 ==

== ENCOUNTER 2020-05-18 09:24 | Outpatient (RCR) | payer MEDICARE, SELFPAY | END 2020-05-26 23:59 | disposition home or self-care (01) | LOC: GPT 09:24 | PROVIDERS: PCP Family Medicine; Referring Provider Registered Nurse; Visit Provider Registered Nurse | DX: Z47.1 Aftercare following joint replacement surgery (principal); Z96.651 Presence of right artificial knee joint | CPT/HCPCS: 97032; 97110; 97162; 97530 ==

== ENCOUNTER 2020-05-27 06:00 | Outpatient (RCR) | payer MEDICARE, SELFPAY | END 2020-06-26 23:59 | disposition home or self-care (01) | LOC: GPT 06:00 | PROVIDERS: PCP Family Medicine; Referring Provider Registered Nurse; Visit Provider Registered Nurse | DX: Z47.1 Aftercare following joint replacement surgery (principal); Z96.651 Presence of right artificial knee joint | CPT/HCPCS: 97110; 97112 ==

== ENCOUNTER → 2020-06-17 13:21 | Outpatient (BNVA) | payer MEDICARE, SELFPAY | PROVIDERS: PCP Family Medicine; Visit Provider Anesthesiology | DX: G89.29 Other chronic pain (principal); M54.9 Dorsalgia, unspecified; M51.9 Unspecified thoracic, thoracolumbar and lumbosacral intervertebral disc disorder; M43.14 Spondylolisthesis, thoracic region; M47.16 Other spondylosis with myelopathy, lumbar region; M47.12 Other spondylosis with myelopathy, cervical region; M48.061 Spinal stenosis, lumbar region without neurogenic claudication; M25.511 Pain in right shoulder; M25.571 Pain in right ankle and joints of right foot; G62.9 Polyneuropathy, unspecified; Z79.891 Long term (current) use of opiate analgesic | CPT/HCPCS: 99214 ==

== ENCOUNTER → 2020-08-16 13:32 | Outpatient (BNVA) | payer MEDICARE, SELFPAY | PROVIDERS: PCP Family Medicine; Visit Provider Anesthesiology | DX: G89.29 Other chronic pain (principal); M47.12 Other spondylosis with myelopathy, cervical region; M43.14 Spondylolisthesis, thoracic region; M51.9 Unspecified thoracic, thoracolumbar and lumbosacral intervertebral disc disorder; M47.16 Other spondylosis with myelopathy, lumbar region; M43.16 Spondylolisthesis, lumbar region; M48.061 Spinal stenosis, lumbar region without neurogenic claudication; M54.9 Dorsalgia, unspecified; Z98.1 Arthrodesis status; Z98.890 Other specified postprocedural states; Z79.891 Long term (current) use of opiate analgesic | CPT/HCPCS: 99214 ==

== ENCOUNTER → 2020-10-13 13:33 | Outpatient (BNVA) | payer MEDICARE, SELFPAY | PROVIDERS: PCP Family Medicine; Visit Provider Anesthesiology | DX: G89.29 Other chronic pain (principal); M54.9 Dorsalgia, unspecified; M51.9 Unspecified thoracic, thoracolumbar and lumbosacral intervertebral disc disorder; M43.14 Spondylolisthesis, thoracic region; M47.16 Other spondylosis with myelopathy, lumbar region; M43.16 Spondylolisthesis, lumbar region; M48.061 Spinal stenosis, lumbar region without neurogenic claudication; M47.12 Other spondylosis with myelopathy, cervical region; M25.511 Pain in right shoulder; Z98.1 Arthrodesis status; Z79.891 Long term (current) use of opiate analgesic | CPT/HCPCS: 99214 ==

== ENCOUNTER → 2020-12-06 13:56 | Outpatient (BNVA) | payer MEDICARE, SELFPAY | PROVIDERS: PCP Family Medicine; Visit Provider Nurse Practitioner | DX: M47.16 Other spondylosis with myelopathy, lumbar region (principal); M51.9 Unspecified thoracic, thoracolumbar and lumbosacral intervertebral disc disorder; M43.14 Spondylolisthesis, thoracic region; M47.12 Other spondylosis with myelopathy, cervical region; M54.9 Dorsalgia, unspecified; M96.1 Postlaminectomy syndrome, not elsewhere classified; G62.9 Polyneuropathy, unspecified; M25.562 Pain in left knee; Z98.1 Arthrodesis status; Z79.891 Long term (current) use of opiate analgesic | CPT/HCPCS: 99213; 99214 ==

== ENCOUNTER → 2021-02-10 13:48 | Outpatient (BNVA) | payer MEDICARE, SELFPAY | PROVIDERS: PCP Family Medicine; Visit Provider Nurse Practitioner | DX: G89.29 Other chronic pain (principal); M79.605 Pain in left leg; M25.562 Pain in left knee; M48.061 Spinal stenosis, lumbar region without neurogenic claudication; M47.16 Other spondylosis with myelopathy, lumbar region; M43.16 Spondylolisthesis, lumbar region; M47.12 Other spondylosis with myelopathy, cervical region; M25.511 Pain in right shoulder; M43.14 Spondylolisthesis, thoracic region; M51.9 Unspecified thoracic, thoracolumbar and lumbosacral intervertebral disc disorder; M96.1 Postlaminectomy syndrome, not elsewhere classified; Z98.1 Arthrodesis status; Z79.891 Long term (current) use of opiate analgesic | CPT/HCPCS: 99214 ==

== ENCOUNTER → 2021-04-18 12:47 | Outpatient (BNVA) | payer MEDICARE, SELFPAY | PROVIDERS: PCP Family Medicine; Visit Provider Anesthesiology | DX: M51.9 Unspecified thoracic, thoracolumbar and lumbosacral intervertebral disc disorder (principal); M43.14 Spondylolisthesis, thoracic region; M47.16 Other spondylosis with myelopathy, lumbar region; M48.061 Spinal stenosis, lumbar region without neurogenic claudication; M43.16 Spondylolisthesis, lumbar region; M47.12 Other spondylosis with myelopathy, cervical region; M96.1 Postlaminectomy syndrome, not elsewhere classified; M25.511 Pain in right shoulder; M19.90 Unspecified osteoarthritis, unspecified site; Z98.1 Arthrodesis status; Z98.890 Other specified postprocedural states; Z79.891 Long term (current) use of opiate analgesic | CPT/HCPCS: 99214 ==

== ENCOUNTER → 2021-06-15 14:01 | Outpatient (BNVA) | payer MEDICARE, SELFPAY | PROVIDERS: PCP Family Medicine; Visit Provider Anesthesiology | DX: G89.29 Other chronic pain (principal); M47.16 Other spondylosis with myelopathy, lumbar region; M48.061 Spinal stenosis, lumbar region without neurogenic claudication; M43.16 Spondylolisthesis, lumbar region; M43.14 Spondylolisthesis, thoracic region; M51.9 Unspecified thoracic, thoracolumbar and lumbosacral intervertebral disc disorder; M96.1 Postlaminectomy syndrome, not elsewhere classified; M47.12 Other spondylosis with myelopathy, cervical region; M25.511 Pain in right shoulder; M19.90 Unspecified osteoarthritis, unspecified site; Z98.1 Arthrodesis status; Z79.891 Long term (current) use of opiate analgesic | CPT/HCPCS: 99214 ==

== ENCOUNTER 2022-07-18 18:21 | Emergency (ER) | payer MEDICARE, SELFPAY ==
[2022-07-18 18:33] VITALS: BP 158/82; PULSE 54; RESP 18; TEMP 36.3; O2SAT 96
--- NOTE | 2022-07-18 18:40 | XRR_ITS ---
PROCEDURE INFORMATION: Exam: XR Chest Exam date and time: 07/18/2022 6:54 PM Age: 77 years old Clinical indication: Pain; Other: Headache; Additional info: AMS, severe headaches for 1 month, slurred speech TECHNIQUE: Imaging protocol: Radiologic exam of the chest. Views: 1 view. COMPARISON: CR XR chest 1V portable [id number] 06/30/2019 1:33 PM FINDINGS: Lungs: Right lower lobe atelectasis versus infiltrate. Pleural spaces: Unremarkable. No pleural effusion. No pneumothorax. Heart/Mediastinum: Large hiatal hernia, previously seen to contain omental fat on prior chest CT. Bones/joints: Bilateral shoulder arthroplasty changes. XR/XR chest 1V portable [id number] IMPRESSION: 1. Right lower lobe atelectasis versus infiltrate. 2. Large hiatal hernia, previously seen to contain omental fat on prior chest CT. 3. Bilateral shoulder arthroplasty changes.
--- NOTE | 2022-07-18 18:40 | CTR_ITS ---
PROCEDURE INFORMATION: Exam: CT Head Without Contrast Exam date and time: 07/18/2022 7:56 PM Age: 77 years old Clinical indication: Speech disturbance; Patient HX: Per EMS, patient started having slurred speech after taking oxycontin. ; Additional info: AMS TECHNIQUE: Imaging protocol: Computed tomography of the head without contrast. Radiation optimization: All CT scans at this facility use at least one of these dose optimization techniques: automated exposure control; mA and/or kV adjustment per patient size (includes targeted exams where dose is matched to clinical indication); or iterative reconstruction. REPORTING DATA: Count of CT and Cardiac NM exams in prior 12 months: This patient has received 0 known CTs and 0 known cardiac nuclear medicine studies in the 12 months prior to the current study. COMPARISON: CT cervical spine w con [id number] 07/24/2019 10:29 AM RADIATION DOSE METRICS: Total DLP (mGy-cm): 1189.98 FINDINGS: Brain: Mild diffuse white matter disease likely reflecting chronic microvascular ischemic changes. Cerebral ventricles: No ventriculomegaly. Paranasal sinuses: Visualized sinuses are unremarkable. No fluid levels. Mastoid air cells: Visualized mastoid air cells are well aerated. Bones/joints: Unremarkable. No acute fracture. Soft tissues: Unremarkable. CT/CT head wo con* [id number] IMPRESSION: Negative for intracranial hemorrhage or mass effect.
--- NOTE | 2022-07-18 18:41 | ECG_ITS ---
[facility] Test Date: 2022-07-18 Pat Name: Belia Machado Department: Room: Gender: Female Adoption Services Manager: : 1945 Requested By: Pedro Howell Order Number: [id number] Patrick MD: Spencer Perry M.D. Measurements Intervals [place] Rate: 41 P: 95 [place]: 160 QRS: -28 QRSD: 90 T: 35 QT: 474 QTc: 395 Interpretive Statements SINUS BRADYCARDIA BORDERLINE LEFT AXIS DEVIATION [QRS AXIS < -20] Compared to ECG 06/30/2019 15:05:22 Sinus rhythm no longer present Electronically Signed On 07-18-2022 22:50:50 WEB SITE MANAGER by Spencer Perry M.D. [id number]
--- NOTE | 2022-07-18 18:53 | W.ED.NEUROSD ---
HPI - Neuro Symptoms/Deficit General: Chief Complaint: Altered Mental Status Stated Complaint: SLURRED SPEECH Time Seen by Provider: 07/18/22 18:30 Source: patient and EMS Mode of arrival: EMS Limitations: no limitations History of Present Illness: 77-year-old female who sent here for slurred speech and altered mental status here she is answering all my questions appropriately she states that she is feels very lethargic and tired she did take her daughter sleeping pill this evening along with her OxyContin she states she just feels out of it she not have any noted slurred speech here no focal deficits she denies any headache denies any fevers. Associated symptoms: Deny chest pain, nausea or vomiting Review of Systems Const: Denies: fever(s), chills, body aches or change in appetite Eyes: Denies: blurry vision or eye discomfort ENMT: Denies: throat pain or dental pain Card: Denies: chest pain Resp: Denies: dyspnea GI: Denies: abdominal pain, nausea, vomiting or diarrhea : Denies: dysuria Musc: Denies: neck pain or back pain Skin/Breast: Denies: rash Neuro: Reports: Slurred speech present Psych: Denies: depression Charlie/Lymph: Denies: easy bruising All/Imm: Denies: urticaria PFSH ED PFSH: Medical History Acute pain of left knee Back pain with history of spinal surgery Chronic pulmonary edema Chronic right shoulder pain Concentric annular tear of intervertebral disc Encounter for long-term opiate analgesic use History of COPD History of gallbladder disease Lumbar post-laminectomy syndrome Osteopenia Spondylolisthesis, lumbar region Stenosis, spinal, lumbar Surgical History History of lumbar fusion History of reverse total replacement of shoulder joint reverse total shoulder arthroplasty right shoulder 10/20/20 Dr. Blayne Mancini Hx of excision of lamina of cervical vertebra for decompression of spinal cord Hx of neck surgery Hx of thyroidectomy Status post cervical spinal fusion Family History Father Throat cancer Mother , At age 80 Heart disease Other Diabetes Hypertension Thyroid disorder Denies family history of Anesthesia complication Bleeding disorder Social History Second hand smoke exposure: No Alcohol intake: never Lives independently: Yes Household members: spouse Marital status: Current occupational status: retired NIH stroke score NIHSS: Level Of Consciousness - 1a: 0 Level Of Consciousness Questions - 1b: Both Correct Level Of Consciousness Commands - 1c: Both Correct Best Gaze - 2: Normal Visual Ni - 3: No Visual Loss Facial Palsy - 4: Normal Motor Arm Right - 5: No Drift Motor Arm Left - 5: No Drift Motor Leg Right - 6: No Drift Motor Leg Left - 6: No Drift Limb Ataxia - 7: Absent Sensory - 8: Normal Best Language - 9: No Aphasia Dysarthia - 10: Normal Extinction And Inattention - 11: 0 Score: Total Score: 0 Physical Exam Const: COMMON NORMALS: no acute distress, patient oriented x3 and healthy appearing HENMT: COMMON NORMALS: normocephalic and atraumatic HEAD & SCALP: normocephalic and atraumatic Eye: COMMON NORMALS: Equal, round and reactive pupils present and EOMs intact bilaterally PUPIL: Yes Equal, round and reactive pupils present Neck/C-Spine: COMMON NORMALS: full ROM and supple Chest: COMMONS NORMALS: normal inspection of the chest and normal palpation of entire chest wall Resp: COMMON NORMALS: normal respiratory effort, No retractions, No use of accessory muscles and clear to auscultation bilaterally AUSCULTATION: clear to auscultation bilaterally Cardio: COMMON NORMALS: regular rate, regular rhythm and No murmurs present (Cardio) RATE: regular rate RHYTHM: regular rhythm GI: COMMON NORMALS: Normal to inspection, nondistended, normoactive bowel sounds present, Soft to palpation, non-tender and no masses PALPATION: Yes Soft to palpation Extremity: COMMON NORMALS: normal to inspection and full ROM Neuro: COMMON NORMALS: patient oriented x3, moves all extremities and no focal motor deficits Psych: COMMON NORMALS: mental status grossly normal, Normal thought process present and cooperative THOUGHT PROCESS: Normal thought process present Skin: COMMON NORMALS: no rashes or lesions noted and no wounds GENERAL SKIN EXAM: no rashes or lesions noted Course Vital Signs: Vital signs: Vital Signs Temperature 97.4 F L 07/18/22 18:33 Pulse Rate 55 L 07/18/22 22:07 Respiratory Rate 18 07/18/22 22:07 Blood Pressure 158/87 07/18/22 22:07 Pulse Oximetry 95 07/18/22 20:30 Oxygen Delivery Me thod 07/18/22 20:30 Oxygen Flow Rate 4 07/18/22 20:30 MDM - Neuro Symptoms/Deficit Medical Decision Making Patient presents here with confusion is likely due to her medications. She is now awake alert answer my questions appropriately imaging and work-up here are all normal she has no signs of pneumonia symptom diaz she is stable for discharge she is to follow-up with her PCP and return if worsening. Lab Data 07/18/22 18:52 07/18/22 18:52 Radiology Impressions Chest X-Ray 07/18/22 18:40 IMPRESSION: 1. Right lower lobe atelectasis versus infiltrate. 2. Large hiatal hernia, previously seen to contain omental fat on prior chest CT. 3. Bilateral shoulder arthroplasty changes. Head CT 07/18/22 18:40 IMPRESSION: Negative for intracranial hemorrhage or mass effect. Cervical Spine CT 07/18/22 20:45 IMPRESSION: Similar exam compared to prior study with postsurgical changes without acute findings. Laboratory Results WBC 6.3 10^3/uL (4.0-10.0) 07/18/22 18:52 RBC 4.85 10^6/uL (4.1-5.3) 07/18/22 18:52 Hgb 13.9 g/dL (11.5-15.3) 07/18/22 18:52 Hct 43.9 % (37.0-47.0) 07/18/22 18:52 MCV 90.5 fl (81-99) 07/18/22 18:52 MCH 28.7 pg (28.0-34.0) 07/18/22 18:52 MCHC 31.7 g/dL (30.0-36.0) 07/18/22 18:52 RDW 14.2 % (12.1-15.1) 07/18/22 18:52 Plt Count 252 10^3/cmm (130-400) 07/18/22 18:52 MPV 11.5 fL (7.4-10.4) H 07/18/22 18:52 Neut % (Auto) 52.2 % 07/18/22 18:52 Lymph % (Auto) 36.8 % 07/18/22 18:52 [place] % (Auto) 8.1 % 07/18/22 18:52 Eos % (Auto) 2.1 % 07/18/22 18:52 Baso % (Auto) 0.6 % 07/18/22 18:52 Neut # (Auto) 3.29 10^3/uL (1.8-7.7) 07/18/22 18:52 Lymph # (Auto) 2.3 10^3/uL (0.8-4.8) 07/18/22 18:52 [place] # (Auto) 0.5 10^3/uL (0.2-0.9) 07/18/22 18:52 Eos # (Auto) 0.1 10^3/uL (0.0-0.8) 07/18/22 18:52 Baso # (Auto) 0.0 10^3/uL (0.0-0.1) 07/18/22 18:52 Nucleated RBC % (auto) 0 % 07/18/22 18:52 Nucleated RBCs # 0.0 /100WBC 07/18/22 18:52 Sodium 138 mmol/L (136-145) 07/18/22 18:52 Potassium 4.0 mmol/L (3.5-5.1) 07/18/22 18:52 Chloride 100 mmol/L (98-107) 07/18/22 18:52 Carbon Dioxide 30 mmol/L (22-29) H 07/18/22 18:52 Anion Gap 12.0 (5-19) 07/18/22 18:52 BUN 15 mg/dL (8-23) 07/18/22 18:52 Creatinine 0.6 mg/dL (0.5-0.9) 07/18/22 18:52 GFR Calculation Not Reportable 07/18/22 18:52 Glucose 97 mg/dL (65-115) 07/18/22 18:52 Calculated Osmolality 287 mOsm/kg (285-295) 07/18/22 18:52 Calcium 9.4 mg/dL (8.5-10.5) 07/18/22 18:52 Total Bilirubin 0.2 mg/dL (0.15-1.2) 07/18/22 18:52 AST 13 U/L (0-32) 07/18/22 18:52 ALT 11 U/L (0-33) 07/18/22 18:52 Alkaline Phosphatase 91 U/L (35-105) 07/18/22 18:52 Troponin T Baseline 14 ng/L (0-10) H 07/18/22 18:52 Troponin T 120 Minute 15.09 ng/L (0-10) H 07/18/22 20:52 Delta Troponin T 1.09 ABS# (0-10) 07/18/22 20:52 Total Protein 6.4 g/dL (6.6-8.7) L 07/18/22 18:52 Albumin 4.0 g/dL (3.5-5.2) 07/18/22 18:52 Globulin 2.4 g/dL (1.3-4.6) 07/18/22 18:52 Urine Color Light yellow (Yellow) 07/18/22 19:14 Urine Appearance Clear (CLEAR) 07/18/22 19:14 Urine pH 6.5 (5-7) 07/18/22 19:14 Ur Specific [place] 1.010 (1.005-1.030) 07/18/22 19:14 Urine Protein Neg (Negative) 07/18/22 19:14 Urine Glucose (UA) Norm (Normal) 07/18/22 19:14 Urine Ketones Negative (Negative) 07/18/22 19:14 Urine Blood Neg (Negative) 07/18/22 19:14 Urine Nitrate Negative (Negative) 07/18/22 19:14 Urine Bilirubin Neg (Negative) 07/18/22 19:14 Urine Urobilinogen Neg mg/dL (Negative) 07/18/22 19:14 Ur Leukocyte Esterase Negative (Negative) 07/18/22 19:14 EKG Data EKG 1: I personally reviewed and interpreted this EKG as follows: EKG interpretation date: 07/18/22 EKG interpretation time: 19:00 Interpretation: sinus jacky hr [address] or t wave abnormalities qrs 90 qtc 412 Discharge Plan Discharge Patient Disposition: Home Clinical Impression: Acute confusion Condition: Stable Prescriptions: No Action Myrbetriq 50 mg tablet extended release 24 hr 50 mg PO DAILY albuterol sulfate [ProAir HFA] 90 mcg/actuation HFA aerosol inhaler 2 puff INHALATION Q6H PRN (Reason: Shortness Of Breath) esomeprazole magnesium [Nexium] 40 mg capsule,delayed release(DR/EC) 40 mg PO DAILY PRN (Reason: Indigestion) atenolol 50 mg tablet 50 mg PO DAILY modafinil 200 mg tablet 200 mg PO QDAY Rx Instructions: pt states she has this medication but not taken in a few months fluticasone propionate 50 mcg/actuation spray,suspension 2 spray INTRANASAL DAILY PRN (Reason: unknown) (DME) oxygen-air delivery systems Device See Rx Instructions .ROUTE .MEDSUPPLY Qty: 1 Rx Instructions: As directed prevagen PO magnesium chloride 64 mg tablet extended release 625 mg PO DAILY diphenhydramine HCl [Benadryl Allergy] 25 mg tablet 25 mg PO BID PRN loratadine-pseudoephedrine [Claritin-D 24 Hour] 10-240 mg tablet extended release 24 hr 1 tab PO ONCE oxycodone 80 mg tablet,oral only,ext.rel.12 hr 80 mg PO TID 30 Days Qty: 90 0RF Rx Instructions: fill on or after 06/25/21 oxycodone [OxyContin] 80 mg tablet,oral only,ext.rel.12 hr 80 mg PO TID 30 Days Qty: 90 0RF Rx Instructions: fill on or after 07/25/21 oxycodone-acetaminophen 10-325 mg tablet 1 tab PO .5 times a day PRN (Reason: pain) 30 Days Qty: 90 0RF Rx Instructions: fill on or after 06/25/21 oxycodone-acetaminophen [Percocet] 10-325 mg tablet 1 tab PO .5 times a day PRN (Reason: pain) 30 Days Qty: 60 0RF Rx Instructions: [facility] fill on or after 06/25/21 oxycodone-acetaminophen [Percocet] 10-325 mg tablet 1 tab PO .5 times a day PRN (Reason: pain) 30 Days Qty: 90 0RF Rx Instructions: fill on or after 07/25/21 oxycodone-acetaminophen [Percocet] 10-325 mg tablet 1 tab PO .5 times a day PRN (Reason: pain) 30 Days Qty: 60 0RF Rx Instructions: [facility] fill on or after 07/25/21 pregabalin [Lyrica] 200 mg capsule 200 mg PO TID 30 Days Qty: 90 1RF carisoprodol [Soma] 250 mg tablet 250 mg PO TID PRN (Reason: muscle pain) 30 Days Qty: 90 1RF Oxytrol 3.9 mg/24 hr patch semiweekly transdermal Multiple Vitamins Tablet 1 tab PO DAILY Lasix 40 mg Tablet 40 mg PO DAILY vitamin E 1,000 unit Capsule See Rx Instructions .ROUTE .COMPLEX Rx Instructions: 2 caps orally on sat-sat and 1 cap on sat albuterol sulfate 2.5 mg /3 mL (0.083 %) Solution For Nebulization 2.5 mg inhalation BID PRN (Reason: Shortness Of Breath) Mobic 15 mg Tablet 15 mg PO DAILY levothyroxine 112 mcg Tablet See Rx Instructions .ROUTE .COMPLEX Rx Instructions: 2 tab po on sat through sat and 1 tab on saturday Vitamin D3 2,000 unit Tablet 2,000 unit PO DAILY potassium chloride 20 mEq Tablet Extended Release See Rx Instructions .ROUTE .COMPLEX Rx Instructions: 40-80 mEq orally daliy prn albuterol sulfate 2.5 mg /3 mL (0.083 %) solution for nebulization 2.5 mg INHALATION Q6H PRN (Reason: shortness of breath or wheezing) Qty: 180 0RF Discharge Orders: Discharge ED (Routine); Ordered 07/18/22 Ordered By: Pedro Howell Referrals: Korey Cruz MD [Primary Care Provider] - Discharge Diet: Advance as tolerated Discharge Activity: Resume usual activity Patient Instructions: Confusion Coding Level of Care Code ED Orthotic Aide for [place]
[2022-07-18 19:07] LABS: Basophils % 0.6 %; Eosinophils # 0.1 10^3/uL (0.0-0.8); Eosinophils % 2.1 %; Hematocrit 43.9 % (37.0-47.0); Hemoglobin 13.9 g/dL (11.5-15.3); Lymphocytes # 2.3 10^3/uL (0.8-4.8); Lymphocytes % 36.8 %; Mean Corpuscular HGB Conc 31.7 g/dL (30.0-36.0); Mean Corpuscular Hemoglobin 28.7 pg (28.0-34.0); Mean Corpuscular Volume 90.5 fl (81-99); Mean Platelet Volume 11.5 fL (7.4-10.4); Monocytes # 0.5 10^3/uL (0.2-0.9); Monocytes % 8.1 %; Neutrophils # 3.29 10^3/uL (1.8-7.7); Neutrophils % 52.2 %; Nucleated Red Blood Cells % 0 %; Platelet Count 252 10^3/cmm (130-400); Red Blood Count 4.85 10^6/uL (4.1-5.3); Red Cell Distribution Width 14.2 % (12.1-15.1); White Blood Count 6.3 10^3/uL (4.0-10.0)
[2022-07-18 19:12] VITALS: BP 187/98; PULSE 46; RESP 12; O2SAT 98
[2022-07-18 19:25] LABS: Add Urine Microscopic? NO; Charge for UA Resulting for Rev
[2022-07-18 19:30] LABS: Bilirubin Urine Neg (Negative); Blood Urine Neg (Negative); Glucose Urine UA Norm (Normal); Ketones Urine Negative (Negative); Leukocyte Esterase Urine Negative (Negative); Nitrate Urine Negative (Negative); Protein Urine Neg (Negative); Urine Appearance Clear (CLEAR); Urine Color Light yellow (Yellow); Urobilinogen Urine Neg (Negative); pH Urine 6.5 (5-7)
[2022-07-18 19:33] LABS: Alanine Aminotransferase 11 U/L (0-33); Alkaline Phosphatase 91 U/L (35-105); Aspartate Amino Transferase 13 U/L (0-32); Blood Urea Nitrogen 15 mg/dL (8-23); Calcium 9.4 mg/dL (8.5-10.5); Carbon Dioxide 30 mmol/L (22-29); Chloride 100 mmol/L (98-107); Globulin 2.4 g/dL (1.3-4.6); Glucose 97 mg/dL (65-115); Osmolality Calculated 287 mOsm/kg (285-295); Sodium 138 mmol/L (136-145); Total Bilirubin 0.2 mg/dL (0.15-1.2); Total Protein 6.4 g/dL (6.6-8.7)
[2022-07-18 20:30] VITALS: BP 121/75; PULSE 47; RESP 12; O2SAT 95
--- NOTE | 2022-07-18 20:45 | CTR_ITS ---
PROCEDURE INFORMATION: Exam: CT Cervical Spine Without Contrast Exam date and time: 07/18/2022 9:17 PM Age: 77 years old Clinical indication: Prior surgery; Surgery type: Cervical fusion. Thyroidectomy; Patient HX: C/O neck pain. History of chronic neck pain. TECHNIQUE: Imaging protocol: Computed tomography of the cervical spine without contrast. Radiation optimization: All CT scans at this facility use at least one of these dose optimization techniques: automated exposure control; mA and/or kV adjustment per patient size (includes targeted exams where dose is matched to clinical indication); or iterative reconstruction. REPORTING DATA: Count of CT and Cardiac NM exams in prior 12 months: This patient has received [address] and 0 known cardiac nuclear medicine studies in the 12 months prior to the current study. COMPARISON: CT cervical spine w con [id number] 07/24/2019 10:29 AM RADIATION DOSE METRICS: Total DLP (mGy-cm): 611.27 FINDINGS: Bones/joints: Surgical hardware in place in the spine. Bilateral C6 pedicular screws are again suspected be fractured. Productive degenerative changes seen at C3/4, 4/5 and 5/6, somewhat similar to prior exam. Cervical disc fusion at C4 through C6 again seen. C3 through C5 laminectomy changes again seen. C2-C3: No significant disc bulge or herniation. No severe spinal canal stenosis. No significant neural foraminal narrowing. C3-C4: No significant disc bulge or herniation. No severe spinal canal stenosis. No significant neural foraminal narrowing. C4-C5: No significant disc bulge or herniation. No severe spinal canal stenosis. No significant neural foraminal narrowing. C5-C6: See above. C6-C7: See above. C7-T1: No significant disc bulge or herniation. No severe spinal canal stenosis. No significant neural foraminal narrowing. Thyroid: Thyroidectomy Lungs: Emphysematous changes. Soft tissues: Unremarkable. CT/CT cervical spin wo con* [id number] IMPRESSION: Similar exam compared to prior study with postsurgical changes without acute findings.
--- NOTE | 2022-07-18 20:52 | ECG_ITS ---
[facility] Test Date: 2022-07-18 Pat Name: Belia Machado Department: Room: Gender: Female Compliance Examiner: : 1945 Requested By: Pedro Howell Order Number: [id number] Patrick MD: Spencer Perry M.D. Measurements Intervals [place] Rate: 47 P: 94 FL: 162 QRS: -23 QRSD: 81 T: 39 QT: 452 QTc: 403 Interpretive Statements SINUS BRADYCARDIA BORDERLINE LEFT AXIS DEVIATION [QRS AXIS < -20] Compared to ECG 07/18/2022 19:00:05 No significant changes Electronically Signed On 07-18-2022 22:50:19 CELL INSPECTOR by Spencer Perry M.D. [email or web address]
[2022-07-18 21:10] LABS: Troponin(5th) Baseline 14 ng/L (0-10)
[2022-07-18 21:16] LABS: Troponin 5 2HR 15.09 ng/L (0-10)
[2022-07-18 21:19] LABS: Troponin 5 2HR Delta 1.09 ABS# (0-10)
[2022-07-18 22:07] VITALS: BP 158/87; PULSE 55; RESP 18
== END 2022-07-18 22:24 | disposition home or self-care (01) ==
PROVIDERS: Emergency Provider Emergency Medicine; PCP Family Medicine
DX: R41.0 Disorientation, unspecified (principal); K44.9 Diaphragmatic hernia without obstruction or gangrene; J44.9 Chronic obstructive pulmonary disease, unspecified
CPT/HCPCS: 36415; 70450; 71045; 72125; 80053; 81003; 84484; 85025; 93005; 99285

== ENCOUNTER → 2024-10-20 13:41 | Outpatient (BNVA) | payer MEDICARE, SELFPAY | PROVIDERS: PCP Family Medicine; Visit Provider Orthopaedic Surgery | DX: M54.9 Dorsalgia, unspecified (principal); M54.50 Low back pain, unspecified; M54.2 Cervicalgia | CPT/HCPCS: 72050; 72072; 72110; 99203 ==